=== PATIENT | female | born 1970 | race Two or more races ===

== ENCOUNTER 2019-08-15 05:00 | Day surgery (SDC) | payer OTHER ==
[~2019-08-15 05:00] MED LIST: GABAPENTIN600 MG PO; PLAQUENIL PO; TOPROL XL50 M1 PO
== END 2019-08-15 09:50 | disposition home or self-care (01) ==
LOC: CIR.AMB 05:00
DX: M65.841 Other synovitis and tenosynovitis, right hand (principal)

== ENCOUNTER 2020-04-23 06:10 | Day surgery (SDC) | payer OTHER | END 2020-04-23 11:27 | disposition home or self-care (01) | LOC: CIR.AMB 06:10 → ADM 11:30 | PROVIDERS: ATTEND Surgery Surgery of the Hand | DX: M67.843 Other specified disorders of tendon, right hand (principal); M65.311 Trigger thumb, right thumb ==

== ENCOUNTER 2021-02-16 12:57 | Outpatient (CLI) | payer OTHER | END 2021-02-16 13:01 | disposition home or self-care (01) | LOC: SONOGRAMA 12:57 | PROVIDERS: ATTEND Pathology Anatomic Pathology & Clinical Pathology | DX: R59.1 Generalized enlarged lymph nodes (principal) ==